=== PATIENT | male | born 1990 | race Caucasian/White ===

== ENCOUNTER 2018-12-10 09:06 | Day surgery (SDC) | payer BC ==
[2018-12-08 14:21] VITALS: BMI 36.6
[2018-12-10 09:28] VITALS: TEMP 98.2
[2018-12-10] MEDS ORDERED: LIDOCAINE 1% 20 ML VIAL (10MG/ML) FOR IV START INTRADERMA ONE (09:38)
[2018-12-10] MEDS ORDERED: LACTATED RINGERS 1,000 ML IV ONE (09:38)
[2018-12-10] MEDS ORDERED: LIDOCAINE 1% INJ 10MG/ML (20 ML MDV) ONE (10:01)
[2018-12-10] MEDS ORDERED: PROPOFOL 10 MG/ML 20 ML VIAL IV ONE (10:01)
--- NOTE | 2018-12-10 10:40 | P.PCN ---
Date of Procedure: 12/10/18 Description of Procedure: BRIEF HISTORY: Patient is a 28-year-old, pleasant, male patient with a known history of GERD presenting for outpatient evaluation with EGD. Patient reports long-standing history of reflux and currently is on Protonix therapy which was increased from daily to twice daily. He continues to report breakthrough symptoms even on PPI therapy. PROCEDURE PERFORMED: Esophagogastroduodenoscopy with biopsy. PREOPERATIVE DIAGNOSIS: GERD. ESTIMATED BLOOD LOSS: Minimal. IV sedation per anesthesia. PROCEDURE: After informed consent was obtained, the patient was brought into the endoscopy unit. IV sedation was administered by Anesthesia under continuous monitoring. I nitially the Olympus GIF-190 video endoscope was inserted into the mouth. Esophagus intubated without any difficulty. It was gradually advanced into the stomach and duodenum and carefully examined. The bulb and the second part of the duodenum appeared normal, with biopsies taken. The scope at this time was withdrawn to the stomach, adequately insufflated with air, and upon careful examination, mucosa of the antrum, body, cardia and the fundus appeared grossly normal except for findings of a J-shaped stomach, some mild erythema in the antrum and body suggestive of mild gastritis which was biopsied and the gastric fold just distal to the GE junction which appeared somewhat thickened but otherwise normal in appearance which was biopsied. The scope was then withdrawn into the esophagus. The GE junction was located at 41 cm from the incisors, and biopsied. The esophagus appeared normal, with mid esophageal biopsy. There were no erosions or ulcerations seen and the patient tolerated the procedure well. IMPRESSION: 1. Mild gastritis antrum and body, biopsied. 2. Biopsies of the duodenum, GE junction and mid esophagus. 3. Thickened gastric fold with otherwise normal-appearing tissue which was biopsied. 4. J-shaped stomach. RECOMMENDATIONS: The findings of this examination were discussed with the patient and his mother. Pathology from biopsies. Continue PPI therapy. Follow up with gastroenterology as needed. Okay for diet and to continue current medical regimen.
[2018-12-10 10:51] VITALS: BP 113/80; PULSE 76; RESP 18
== END 2018-12-10 11:33 | disposition home or self-care (01) ==
LOC: ORWHC2ENDO 09:06
PROVIDERS: ATTEND Internal Medicine
DX: K29.50 Unspecified chronic gastritis without bleeding (principal); K20.0 Eosinophilic esophagitis; K21.9 Gastro-esophageal reflux disease without esophagitis; Q40.2 Other specified congenital malformations of stomach; Z80.9 Family history of malignant neoplasm, unspecified; F41.9 Anxiety disorder, unspecified; F32.9 Major depressive disorder, single episode, unspecified; Z84.89 Family history of other specified conditions; Z79.899 Other long term (current) drug therapy
CPT/HCPCS: 88305; 43239; J2001; J2704

== ENCOUNTER → 2020-03-09 | Outpatient (CLI) | payer BC ==
--- NOTE | 2020-03-09 12:33 | P.STRESS ---
- Stress Test Note Stress Test Results/Findings: Exam Performed: stress echo exercise with con Exam Date: 03/09/20 Reason for Exam: cp Height: 6 ft Weight: 270 kg Protocol: stress echo Stage: III Duration of Exercise: 7.46 Resting Heart Rate: 86 Resting Blood Pressure: 117/92 Maximum Achieved Heart Rate: 156 Maximum Achieved Blood Pressure: 168/87 85% PMHR: 83 100% PMHR: 161 METS: 9.3 Technologist Comment: Stress Test Results/Findings: Patient underwent exercise stress echo with a Meliton protocol treadmill stress test. Patient exercised into Stage 3 for a total of 7 minutes 46 seconds reaching a total of and 9.3 METS. Patient's maximum heart rate was 156 which represented 83% age-predicted maximum heart rate. Stress EKG portion: At baseline patient's EKG showed normal sinus rhythm, normal axis, no significant ST or T wave abnormalities. At peak exercise, EKG showed nondiagnostic 0.[address] depressions in the inferolateral leads which represents a normal response. Stress echo portion: 2-D echocardiogram was performed in the parasternal long, personal short, apical 2 and apical four-chamber views at rest, peak exercise and in recovery. At baseline, echocardiogram showed left ventricular ejection fraction 60% without wall motion abnormalities. With peak exercise, echocardiogram shows improvement in left ventricular ejection fraction, increase contractility, decrease in left ventricular dimension without wall motion abnormalities consistent with a normal response to exercise. Conclusions: 1. Nondiagnostic test secondary to patient not achieving 85% maximum predicted heart rate however no inducible ischemia by EKG or echo at given heart rate. 2. Fair exercise capacity.
== END | disposition home or self-care (01) ==
LOC: RADNMMAIN 08:59
PROVIDERS: ATTEND Family Medicine
DX: R07.89 Other chest pain (principal)
CPT/HCPCS: 93351; Q9950

== ENCOUNTER 2021-02-07 08:26 | Day surgery (SDC) | payer BC ==
[2021-02-05 11:21] VITALS: BMI 36.6
[~2021-02-07 08:26] MED LIST: LACTATED RINGERS 1,000 ML IV SCH; LIDOCAINE 1% (10MG/ML) FOR IV START INTRADERMA PRN
[2021-02-07 09:12] VITALS: RESP 16; TEMP 97.7
[2021-02-07] MEDS ORDERED: PROPOFOL 10 MG/ML 20 ML VIAL IV ONE (10:27)
[2021-02-07] MEDS ORDERED: LIDOCAINE 1% INJ 10MG/ML (20 ML MDV) ONE (10:27)
--- NOTE | 2021-02-07 10:39 | P.PCN ---
Date of Procedure: 02/07/21 Procedure(s) Performed: BRIEF HISTORY: Patient is a 30-year-old, pleasant, white female scheduled for a part of evaluation of long-standing history of GERD, which is presently on Protonix 40 mg daily. Lately has been having some epigastric discomfort. PROCEDURE PERFORMED: Esophagogastroduodenoscopy. PREOPERATIVE DIAGNOSIS: long-standing history of GERD. IV sedation per anesthesia. PROCEDURE: After informed consent was obtained, the patient was brought into the endoscopy unit. IV sedation was administered by Anesthesia under continuous monitoring. Initially the Olympus GIF-140 video endoscope was inserted into the mouth. Esophagus intubated without any difficulty. It was gradually advanced i nto the stomach and duodenum and carefully examined. The bulb and the second part of the duodenum appeared normal. The scope at this time was withdrawn to the stomach, adequately insufflated with air, and upon careful examination, mucosa of the antrum, body, cardia and the fundus appeared normal. The scope was then withdrawn into the esophagus. The GE junction was located at 39 cm from the incisors. The esophagus appeared normal. There were no erosions or ulcerations seen and the patient tolerated the procedure well. IMPRESSION: 1.Normal-appearing esophagus with no evidence of esophagitis or Crook's esophagus. 2.Normal-appearing stomach and duodenum. RECOMMENDATIONS: The findings of this examination were discussed with the patient as well as his family. He was advised to continue on pantoprazole 40 mg daily and follow antireflux measures.
[2021-02-07 10:59] VITALS: PULSE 75
[2021-02-07 11:13] VITALS: BP 106/80
== END 2021-02-07 11:29 | disposition home or self-care (01) ==
LOC: ORWHC2ENDO 08:26
PROVIDERS: ATTEND Internal Medicine Gastroenterology
DX: K21.9 Gastro-esophageal reflux disease without esophagitis (principal)
CPT/HCPCS: 43235; J2001; J2704

== ENCOUNTER 2021-04-21 18:39 | Emergency (ER) | payer BC, OTHER ==
[2021-04-21 18:46] VITALS: TEMP 99.4
[2021-04-21] MEDS ORDERED: SODIUM CHLORIDE 0.9% 1,000 ML IV STA (19:39)
[2021-04-21] MEDS ORDERED: ONDANSETRON 4 MG/2 ML VIAL IVP STA (19:39)
--- NOTE | 2021-04-21 19:42 | ED ---
General Adult HPI - General Chief complaint: Upper Respiratory Infection Stated complaint: abd pain Time Seen by Provider: 04/21/21 19:28 Source: patient, RN notes reviewed Mode of arrival: ambulatory Limitations: no limitations - History of Present Illness Initial comments: 30-year-old male presents to the emergency Department with complaints of abdomi nal bloating and diarrhea, onset this morning. Patient states he woke up feeling fine today, however reports at work he developed mild generalized abdominal discomfort followed by a few episodes of diarrhea. Describes abdominal discomfort as cramping. States he has a history of acid reflux diseas e and feels as if this discomfort is quite different. Reports mild nausea and body aches. Denies fever, chills, chest pain, difficulty breathing, cough, dysuria, or hematuria. - Related Data Home Medications Medication Instructions Recorded Confirmed Escitalopram [Lexapro] 20 mg PO HS 03/02/14 02/05/21 Pantoprazole Sodium [Protonix] 40 mg PO HS 12/08/18 02/05/21 Cholecalciferol [Vitamin D3 (25 50 mcg PO DAILY 02/05/21 02/05/21 Mcg = 1000 Iu)] Previous Rx's Medication Instructions Recorded Ondansetron Odt [Zofran Odt] 4 mg PO Q8HR PRN #10 tab 04/21/21 Allergies Allergy/AdvReac Type Severity Reaction Status Date / Time No Known Allergies Allergy Verified 04/21/21 18:46 Review of Systems ROS Statement: Those systems with pertinent positive or pertinent negative responses have been documented in the HPI. ROS Other: All systems not noted in ROS Statement are negative. Past Medical History Past Medical History: GERD/Reflux Additional Past Medical History / Comment(s): "HAS BEEN HAVING ALOT OF indigestion", History of Any Multi-Drug Resistant Organisms: None Reported Additional Past Surgical History / Comment(s): PILONIDAL CYST surgery, egd, Past Anesthesia/Blood Transfusion Reactions: Motion Sickness Past Psychological History: Anxiety, Depression Smoking Status: Never smoker Past Alcohol Use History: None Reported Past Drug Use History: None Reported - Past Family History Father Family Medical History: Cancer General Exam Limitations: no limitations (Well-developed, well-nourished male in no acute distress. Initial temperature 99.4, pulse 83, respirations 20, blood pressure 118/60, pulse ox 96% on room air.) General appearance: alert, in no apparent distress ENT exam: Present: normal exam, normal oropharynx, mucous membranes moist Respiratory exam: Present: normal lung sounds bilaterally. Absent: respiratory distress, wheezes, rales, rhonchi, stridor Cardiovascular Exam: Present: regular rate, normal rhythm, normal heart sounds. Absent: systolic murmur, diastolic murmur, rubs, gallop, clicks GI/Abdominal exam: Present: soft, normal bowel sounds. Absent: distended, tenderness, guarding, rebound, rigid Neurological exam: Present: alert, oriented X3, CN II-XII intact Psychiatric exam: Present: normal affect, normal mood Skin exam: Present: warm, dry, intact, normal color. Absent: rash Course Vital Signs 04/21/21 04/21/21 18:43 21:01 Temperature 99.4 F Pulse Rate 83 80 Respiratory 20 18 Rate Blood Pressure 118/60 119/76 O2 Sat by Pulse 96 99 Oximetry Medical Decision Making - Medical Decision Making 30-year-old male with a past medical history of GERD presents to the emergency department for evaluation. Patient reports a few episodes of diarrhea and mild persistent nausea, onset this morning. Upon exam, patient is well-appearing and in no acute distress. Vital signs are stable. Physical exam findings are negative. Laboratory studies were obtained and are unremarkable. Covid test is negative. X-ray shows no acute findings. Patient is tolerating oral intake without difficulty. He will be discharged home with instructions to follow up with his PCP for a recheck. A work note was provided. Patient was prescribed Zofran for nausea. Return parameters were discussed in detail. Patient verbalizes understanding and agrees with this plan. This patient's care was discussed with my attending Dr. Luu. - Lab Data Result diagrams: 04/21/21 20:03 04/21/21 20:03 Lab Results 04/21/21 04/21/21 04/21/21 Range/Units 18:49 20:03 20:03 WBC 10.5 (3.8-10.6) k/uL RBC 5.15 (4.30-5.90) m/uL Hgb 15.4 (13.0-17.5) gm/dL Hct 44.7 (39.0-53.0) % MCV 86.8 (80.0-100.0) fL MCH 30.0 (25.0-35.0) pg MCHC 34.5 (31.0-37.0) g/dL RDW 12.6 (11.5-15.5) % Plt Count 165 (150-450) k/uL MPV 8.2 Neutrophils % 91 % Lymphocytes % 5 % Monocytes % 2 % Eosinophils % 1 % Basophils % 0 % Neutrophils # 9.6 H (1.3-7.7) k/uL Lymphocytes # 0.5 L (1.0-4.8) k/uL Monocytes # 0.3 (0-1.0) k/uL Eosinophils # 0.1 (0-0.7) k/uL Basophils # 0.0 (0-0.2) k/uL Sodium (137-145) mmol/L Potassium (3.5-5.1) mmol/L Chloride (98-107) mmol/L Carbon Dioxide (22-30) mmol/L Anion Gap mmol/L BUN (9-20) mg/dL Creatinine (0.66-1.25) mg/dL Est GFR (CKD-EPI)AfAm (>60 ml/min/1.73 sqM) Est GFR (CKD-EPI)NonAf (>60 ml/min/1.73 sqM) Glucose (74-99) mg/dL Calcium (8.4-10.2) mg/dL Total Bilirubin (0.2-1.3) mg/dL AST (17-59) U/L ALT (4-49) U/L Alkaline Phosphatase (38-126) U/L Total Protein (6.3-8.2) g/dL Albumin (3.5-5.0) g/dL Amylase (30-110) U/L Lipase (23-300) U/L Urine Color Yellow Urine Appearance Clear (Clear) Urine pH 6.5 (5.0-8.0) Ur Specific Adams 1.029 (1.001-1.035) Urine Protein Trace H (Negative) Urine Glucose (UA) Negative (Negative) Urine Ketones 1+ H (Negative) Urine Blood Negative (Negative) Urine Nitrite Negative (Negative) Urine Bilirubin Negative (Negative) Urine Urobilinogen 3.0 (<2.0) mg/dL Ur Leukocyte Esterase Negative (Negative) Coronavirus (PCR) Not Detected (Not Detectd) 04/21/21 Range/Units 20:03 WBC (3.8-10.6) k/uL RBC (4.30-5.90) m/uL Hgb (13.0-17.5) gm/dL Hct (39.0-53.0) % MCV (80.0-100.0) fL MCH (25.0-35.0) pg MCHC (31.0-37.0) g/dL RDW (11.5-15.5) % Plt Count (150-450) k/uL MPV Neutrophils % % Lymphocytes % % Monocytes % % Eosinophils % % Basophils % % Neutrophils # (1.3-7.7) k/uL Lymphocytes # (1.0-4.8) k/uL Monocytes # (0-1.0) k/uL Eosinophils # (0-0.7) k/uL Basophils # (0-0.2) k/uL Sodium 140 (137-145) mmol/L Potassium 3.9 (3.5-5.1) mmol/L Chloride 106 (98-107) mmol/L Carbon Dioxide 23 (22-30) mmol/L Anion Gap 11 mmol/L BUN 17 (9-20) mg/dL Creatinine 0.69 (0.66-1.25) mg/dL Est GFR (CKD-EPI)AfAm >90 (>60 ml/min/1.73 sqM) Est GFR (CKD-EPI)NonAf >90 (>60 ml/min/1.73 sqM) Glucose 141 H (74-99) mg/dL Calcium 9.1 (8.4-10.2) mg/dL Total Bilirubin 1.0 (0.2-1.3) mg/dL AST 19 (17-59) U/L ALT 24 (4-49) U/L Alkaline Phosphatase 56 (38-126) U/L Total Protein 7.1 (6.3-8.2) g/dL Albumin 4.7 (3.5-5.0) g/dL Amylase 69 (30-110) U/L Lipase 82 (23-300) U/L Urine Color Urine Appearance (Clear) Urine pH (5.0-8.0) Ur Specific Adams (1.001-1.035) Urine Protein (Negative) Urine Glucose (UA) (Negative) Urine Ketones (Negative) Urine Blood (Negative) Urine Nitrite (Negative) Urine Bilirubin (Negative) Urine Urobilinogen (<2.0) mg/dL Ur Leukocyte Esterase (Negative) Coronavirus (PCR) (Not Detectd) - Radiology Data Radiology results: report reviewed, image reviewed KUB x-ray was obtained. Report was reviewed in its entirety. Impression per Dr. Salcedo is nonacute abdomen. Disposition Clinical Impression: Viral illness, Diarrhea, Nausea Disposition: HOME SELF-CARE Condition: Stable Instructions (If sedation given, give patient instructions): Acute Nausea and Vomiting (ED), Acute Diarrhea (ED) Additional Instructions: Take Zofran as needed for nausea. Adjust your diet to eliminate greasy, fatty, spicy, and irritating foods. You should stay home from work as long as diarrhea persists. Work note was provided. Consider obtaining a home Covid test. Follow-up with your PCP for a recheck in the next few days. Return to the emergency department with any new, worsening, or concerning symptoms. Prescriptions: Ondansetron Odt [Zofran Odt] 4 mg PO Q8HR PRN #10 tab PRN Reason: Nausea Is patient prescribed a controlled substance at d/c from ED?: No Referrals: Ifeanyi Zepeda DO [Primary Care Provider] - 1-2 days Time of Disposition: 20:50
[2021-04-21 20:19] LABS: Basophils % (A) 0 %; Eosinophils # (A) 0.1 k/uL (0-0.7); Eosinophils % (A) 1 %; HCT 44.7 % (39.0-53.0); HGB 15.4 gm/dL (13.0-17.5); Lymphocytes # (A) 0.5 k/uL (1.0-4.8); Lymphocytes % (A) 5 %; MCHC 34.5 g/dL (31.0-37.0); MCV 86.8 fL (80.0-100.0); Mean Platelet Volume 8.2; Monocytes # (A) 0.3 k/uL (0-1.0); Monocytes % (A) 2 %; Neutrophils # (A) 9.6 k/uL (1.3-7.7); Neutrophils % (A) 91 %; Platelet Count 165 k/uL (150-450); RBC 5.15 m/uL (4.30-5.90); RDW 12.6 % (11.5-15.5); WBC 10.5 k/uL (3.8-10.6)
[2021-04-21 20:28] LABS: ALT 24 U/L (4-49); AST 19 U/L (17-59); African American GFR (CKD) >90 (>60 ml/min/1.73 sqM); Albumin 4.7 g/dL (3.5-5.0); Alkaline Phosphatase 56 U/L (38-126); Amylase 69 U/L (30-110); Anion Gap 11 mmol/L; Blood Urea Nitrogen 17 mg/dL (9-20); Calcium 9.1 mg/dL (8.4-10.2); Carbon Dioxide 23 mmol/L (22-30); Chloride 106 mmol/L (98-107); Glucose 141 mg/dL (74-99); Lipase 82 U/L (23-300); Non-African American GFR(CKD) >90 (>60 ml/min/1.73 sqM); Potassium 3.9 mmol/L (3.5-5.1); Sodium 140 mmol/L (137-145); Total Protein 7.1 g/dL (6.3-8.2)
--- NOTE | 2021-04-21 20:29 | XR ---
EXAMINATION TYPE: XR KUB DATE OF EXAM: 04/21/2021 COMPARISON: NONE HISTORY: Abdominal pain TECHNIQUE: 2 view FINDINGS: There is no sign of intestinal obstruction or pneumoperitoneum. Fecal pattern is normal. Awilda ng bases are clear. There are no pathologic calcifications. IMPRESSION: Nonacute abdomen.
[2021-04-21 20:31] LABS: Appearance,Urine Clear (Clear); Bilirubin,Urine Negative (Negative); Blood,Urine Negative (Negative); Color,Urine Yellow; Glucose,Urine (UA) Negative (Negative); Ketones,Urine 1+ (Negative); Leukocyte Esterase,Urine Negative (Negative); Nitrite,Urine Negative (Negative); PH, Urine 6.5 (5.0-8.0); Protein,Urine Trace (Negative); Specific Gravity,Urine 1.029 (1.001-1.035)
[2021-04-21] MEDS ORDERED: ONDANSETRON 4 MG ODT STARTER PACK 2 TAB BTL PO STA (20:47)
[2021-04-21 21:03] VITALS: BP 119/76; PULSE 80; RESP 18
== END 2021-04-21 21:01 | disposition home or self-care (01) ==
LOC: EC 18:39
DX: B34.9 Viral infection, unspecified (principal); K21.9 Gastro-esophageal reflux disease without esophagitis; Z20.822 Contact with and (suspected) exposure to COVID-19; Z79.899 Other long term (current) drug therapy
CPT/HCPCS: 36415; 80053; 82150; 83690; 85025; 81003; 87635; 74018; 99284; 96374; 96361; J2405; S0119

== ENCOUNTER → 2024-02-24 | Outpatient (CLI) | payer BC ==
--- NOTE | 2024-02-24 14:30 | US ---
EXAMINATION TYPE: US bladder DATE OF EXAM: 02/24/2024 COMPARISON: NONE CLINICAL INDICATION: Male, 33 years old with history of R35.0 FREQUENCY OF MICTURITION; TECHNIQUE: Grayscale and color doppler imaging of the bilateral kidneys and urinary bladder. FINDINGS: EXAM MEASUREMENTS: Post Void Residual Volume: 15.4 mL Color Doppler performed to assess ureteral jets. Bilateral Jets seen: right jet not seen, left jet seen Normal Post Void Residual (less than 50ml): yes Anechoic appearance of the urinary bladder. No focal wall thickening identified. Only the left ureter al jet was identified. Normal post void residual. IMPRESSION: No ultrasound evidence for urinary bladder abnormality. [facility], , 02/24/2024 2:27 PM
== END | disposition home or self-care (01) ==
LOC: RADUSWWP 13:46
PROVIDERS: ATTEND Family Medicine
DX: R35.0 Frequency of micturition (principal)
CPT/HCPCS: 76857